=== PATIENT | female | born 1970 | race Caucasian/White ===

== ENCOUNTER → 2018-11-28 | Outpatient (CLI) | payer BC, OTHER ==
[~2018-11-28] MED LIST: ALPR-475 PO
== END | disposition home or self-care (01) ==
LOC: CFH 08:38
PROVIDERS: ATTEND Obstetrics & Gynecology
DX: Z12.31 Encounter for screening mammogram for malignant neoplasm of breast (principal)
CPT/HCPCS: 77063; 77067